=== PATIENT | male | born 1930 | race Caucasian/White ===

== ENCOUNTER 2016-08-21 12:37 | Emergency (ER) | payer OTHER ==
[~2016-08-21] VITALS: Ht 177.8 cm; Wt 68.0 kg
[2016-08-21] MEDS ORDERED: LISI1TAB9 PO (13:21)
[2016-08-21] MEDS ORDERED: B CO1TAB6 PO (13:21)
[2016-08-21] MEDS ORDERED: CITA10TA17 PO (13:21)
[2016-08-21] MEDS ORDERED: CHOL100044 PO (13:21)
[2016-08-21] MEDS ORDERED: GLIP5TAB13 PO (13:21)
[2016-08-21] MEDS ORDERED: ATOR10TA PO (13:21)
[2016-08-21] MEDS ORDERED: ASPI325T2 PO (13:21)
[2016-08-21] MEDS ORDERED: CETI-232 PO (13:21)
[2016-08-21] MEDS ORDERED: DONE5TAB34 PO (13:21)
[2016-08-21 13:28] LABS: ANION GAP 11 (5-14); CALCIUM, SERUM 8.8 mg/dL (8.5-10.1); CARBON DIOXIDE 29 mmol/L (21-32); CHLORIDE 100 mmol/L (98-107); CREATININE 2.1 mg/dL (0.6-1.3); GLUCOSE 141 mg/dL (74-106); POTASSIUM 4.3 mmol/L (3.5-5.1); SODIUM SERUM 136 mmol/L (136-145); UREA NITROGEN, BLOOD 24 mg/dL (7-18)
[2016-08-21 13:31] LABS: BASOPHILS % (AUTO) 0.4 % (0.0-2.0); DIFF TOTAL % 100 %; EOSINOPHILS # (AUTO) 0.1 /CMM (0.0-0.7); EOSINOPHILS % (AUTO) 1.1 % (0.0-6.0); HEMATOCRIT 42 % (39-51); HEMOGLOBIN 13.9 g/dL (13.5-17.5); LYMPHOCYTES # (AUTO) 1.6 /CMM (0.8-4.8); LYMPHOCYTES % (AUTO) 18.2 % (20.0-44.0); MEAN CORPUSCULAR HEMOGLOBIN 31 PG (26.0-33.0); MEAN CORPUSCULAR HGB CONC 33 g/dl (31.0-36.0); MEAN CORPUSCULAR VOLUME 92 fL (80-96); MONOCYTES # (AUTO) 0.4 /CMM (0.1-1.30); MONOCYTES % (AUTO) 4.8 % (2.0-12.0); NEUTROPHILS # (AUTO) 6.4 /CMM (1.8-8.9); NEUTROPHILS % (AUTO) 75.5 % (43.0-81.0); PLATELET COUNT (AUTO) 164 /CMM (150-450); RED BLOOD CELL COUNT(AUTO) 4.51 MIL/uL (4.5-6.0); WHITE BLOOD COUNT (AUTO) 8.5 K/uL (4.3-11.0)
[2016-08-21 13:32] LABS: TROPONIN I < 0.017 ng/mL (0.00-0.056)
[2016-08-21 13:34] LABS: ALANINE AMINOTRANSFERASE 26 U/L (12-78); ALBUMIN 3.3 g/dL (3.4-5.0); ASPARTATE AMINOTRANSFERASE 32 U/L (15-37); BILIRUBIN,DIRECT 0.1 mg/dL (0.0-0.2); BILIRUBIN,TOTAL 0.8 mg/dL (0.2-1.0); INDIRECT BILIRUBIN 0.7 mg/dL (0.0-1.1)
[2016-08-21 13:37] LABS: INR 1.04 (0.87-1.13); PROTHROMBIN TIME 10.9 SECS (9.5-12.7)
[2016-08-21 13:44] LABS: LACTIC ACID 1.2 mmol/L (0.4-2.0)
[2016-08-21] MEDS ORDERED: LISINOPRIL (20MG) 20 MG TABLET PO SCH (14:00)
[2016-08-21 14:57] LABS: KETONES,URINE Negative (NEGATIVE); LEUKOCYTE ESTERASE ,URINE Negative (NEGATIVE)
[2016-08-21 15:02] VITALS: BP 174/90
[2016-08-21 15:02] LABS: ADD UA MICROSCOPIC YES
[2016-08-21 15:25] LABS: ADD URINE CULTURE NO; RBC,URINE 0-2 /HPF (0-2); WBC,URINE 0-2 /HPF (0-3)
== END 2016-08-21 15:41 | disposition short-term general hospital (02) ==
LOC: ER 12:39
DX: R41.82 Altered mental status, unspecified (principal); G93.40 Encephalopathy, unspecified; G30.9 Alzheimer's disease, unspecified; F02.80 Dementia in other diseases classified elsewhere, unspecified severity, without behavioral disturbance, psychotic disturbance, mood disturbance, and anxiety; I25.10 Atherosclerotic heart disease of native coronary artery without angina pectoris; I10 Essential (primary) hypertension; M48.00 Spinal stenosis, site unspecified; E21.3 Hyperparathyroidism, unspecified; R79.1 Abnormal coagulation profile; Z79.82 Long term (current) use of aspirin
CPT/HCPCS: 36415; 70450; 71010; 80048; 80076; 81001; 83605; 84484; 85025; 85730; 87040 ×2; 93005; 99285; A4606; 81000-TC; Z7610